=== PATIENT | male | born 1965 | race Caucasian/White ===

== ENCOUNTER 2017-07-06 19:34 | Emergency (ER) | payer BC ==
[2017-07-06] MEDS ORDERED: Clindamycin HCl 150 MG Cap PO ONE (20:10)
[2017-07-06] MEDS ORDERED: Take Home: Acetaminophen/HYDROcodone 325-10 MG, 5 Tab Pack PO ONE (20:11)
[2017-07-06] MEDS ORDERED: Take Home: Clindamycin HCl 150 MG Cap, 6 Cap Pack PO ONE (20:13)
--- NOTE | 2017-07-06 20:17 | EDM.PDOC ---
ED HPI GENERAL MEDICAL PROBLEM - General Chief Complaint: ENT Problem Stated Complaint: dental pain Time Seen by Provider: 07/06/17 19:45 Source of Information: Reports: Patient History Limitations: Reports: No Limitations - History of Present Illness INITIAL COMMENTS - FREE TEXT/NARRATIVE: Patient presents with pain to his left rear molar. He has had a crown and root canal prior and he began having pain to the tooth on . He has tried ibuprofen and tylenol with good results initially. He now however has uncontrolled pain. He has no complaints other than this. No medications or allergies. He was driven here by his . Onset Date: 07/04/17 Duration: Getting Worse Quality: Reports: Ache, Pressure right lower molar Pain Score (Numeric/FACES): 10 - Related Data Allergies Allergy/AdvReac Type Severity Reaction Status Date / Time No Known Allergies Allergy Verified 07/06/17 20:00 Home Meds: Home Meds . [No Known Home Meds] 07/06/17 [History] ED ROS GENERAL - Review of Systems Review Of Systems: See Below Constitutional: Reports: No Symptoms HEENT: Reports: Dental Pain Respiratory: Reports: No Symptoms Cardiovascular: Reports: No Symptoms Endocrine: Reports: No Symptoms GI/Abdominal: Reports: No Symptoms : Reports: No Symptoms Musculoskeletal: Reports: No Symptoms Skin: Reports: No Symptoms Neurological: Reports: No Symptoms Psychiatric: Reports: No Symptoms Hematologic/Lymphatic: Reports: No Symptoms Immunologic: Reports: No Symptoms ED EXAM, GENERAL - Physical Exam Exam: See Below General Appearance: Alert, WD/WN, Mild Distress Eye Exam: Bilateral Eye: EOMI, PERRL Throat/Mouth: Inflammation, Other (lower left jaw is swollen, with rear bottom molar broken and with caries). No: Normal Teeth Head: Atraumatic, Normocephalic Neck: Normal Inspection, Supple, Non-Tender, Full Range of Motion Neurological: Alert, Oriented, CN II-XII Intact, Normal Cognition, Normal Gait, Normal Reflexes, No Motor/Sensory Deficits Lymphatic: No Adenopathy ED GENERAL MEDICAL PROCEDURES - Additional/Other Procedure(s) Other (Free Text) Procedure(s): dental block to lower right mandible. 2 mL 1% lidocaine drawn and injected into medial and lateral sides of lower right jaw Patient tolerated the procedure, however the numbing effect was minimally effective, lasting only 5-10 minutes Patient subsequently medicated with pain medication Course - Vital Signs Last Recorded V/S: Last Vital Signs Temp 37.0 C 07/06/17 19:51 Pulse 68 07/06/17 19:51 Resp 20 07/06/17 19:51 BP 128/78 07/06/17 19:51 Pulse Ox 99 07/06/17 19:51 - Orders/Labs/Meds Meds: Medications Discontinued Medications Generic Name Dose Route Start Last Admin Trade Name Davis PRN Reason Stop Dose Admin Hydrocodone Bitart/Acetaminophen 1 packet 07/06/17 20:11 07/06/17 20:19 Take Home: Acetaminophen/Hydrocodone 325-10mg PO 07/06/17 20:12 1 packet ONETIME ONE Administration Clindamycin HCl 450 mg 07/06/17 20:10 07/06/17 20:19 Cleocin PO 07/06/17 20:11 450 mg ONETIME ONE Administration Clindamycin HCl 1 packet 07/06/17 20:13 07/06/17 20:24 Take Home: Clindamycin Hcl 150 Mg, 6 Cap Pack PO 07/06/17 20:14 1 packet ONETIME ONE Administration Lidocaine HCl 5 ml 07/06/17 19:48 07/06/17 20:00 Xylocaine-Mpf 1% INJECT 07/06/17 19:49 2 ml ONETIME ONE Administration Morphine Sulfate 4 mg 07/06/17 20:20 07/06/17 20:24 Morphine IM 07/06/17 20:21 4 mg ONETIME ONE Administration Ondansetron HCl 4 mg 07/06/17 20:20 07/06/17 20:24 Zofran Odt PO 07/06/17 20:21 4 mg ONETIME ONE Administration Departure - Departure Time of Disposition: 20:23 Disposition: Home, Self-Care 01 Condition: Good Clinical Impression: Dental abscess - Discharge Information Instructions: Dental Abscess, [place] Referrals: Robert Mendez PA-C [Primary Care Provider] - Forms: ED Department Discharge Additional Instructions: Make sure to keep your dental appointment on Saturday. You are taking Clindamycin 300 mg three times a day. If you develop diarrhea, a rash, have a hard time breathing, or other side effects, please call the hospital to let us know. Make sure to eat plenty of yogurt and take some probiotics over the next month to prevent a bacterial infection of the bowel Please call with any questions or concerns - Problem List & Annotations (1) Dental abscess SNOMED Code(s): 674840646 Code(s): K04.7 - PERIAPICAL ABSCESS WITHOUT SINUS Status: Acute Priority : Low - Problem List Review Problem List Initiated/Reviewed/Updated: Yes - Assessment/Plan Assessment:: dental abscess Plan: Make sure to keep your dental appointment on Saturday. You are taking Clindamycin 300 mg three times a day. If you develop diarrhea, a rash, have a hard time breathing, or other side effects, please call the hospital to let us know. Make sure to eat plenty of yogurt and take some probiotics over the next month to prevent a bacterial infection of the bowel Please call with any questions or concerns
[2017-07-06] MEDS ORDERED: Morphine 4 MG/ML Syringe IM ONE (20:20)
[2017-07-06] MEDS ORDERED: Ondansetron 4 MG Tab.DIS PO ONE (20:20)
== END 2017-07-06 20:33 | disposition home or self-care (01) ==
LOC: VM.ED 19:34
DX: K04.7 Periapical abscess without sinus (principal); K02.9 Dental caries, unspecified
CPT/HCPCS: 64400; 96372; 99282; A9270-GY; J2270

== ENCOUNTER 2021-08-24 08:04 | Day surgery (SDC) | payer BC ==
[~2021-08-24 08:04] MED LIST: Lactated Ringers 1,000 ML IV SCH
[2021-08-24] MEDS ORDERED: fentaNYL 100 MCG/2 ML SDV ONE (10:49)
[2021-08-24] MEDS ORDERED: Midazolam 1 MG/ML 2 ML SDV ONE (10:49)
[2021-08-24] MEDS ORDERED: Propofol 200 MG/20 ML SDV ONE (10:49)
== END 2021-08-24 14:43 | disposition home or self-care (01) ==
LOC: VM.SDS 08:04
PROVIDERS: ATTEND Family Medicine
DX: Z12.11 Encounter for screening for malignant neoplasm of colon (principal); D12.0 Benign neoplasm of cecum; K57.30 Diverticulosis of large intestine without perforation or abscess without bleeding; G43.909 Migraine, unspecified, not intractable, without status migrainosus; E78.00 Pure hypercholesterolemia, unspecified; Z79.899 Other long term (current) drug therapy; Z98.890 Other specified postprocedural states
CPT/HCPCS: 00812; J2250; J2704; J3010; J7120

== ENCOUNTER 2023-10-21 14:26 | Emergency (ER) | payer BC ==
[2023-10-21] MEDS: Diphtheria,Pertussis(Acell),Tetanus Vaccine 0.5 ML Syringe IM ONE (15:00)
== END 2023-10-21 15:15 | disposition home or self-care (01) ==
LOC: VM.ED 14:26
DX: S81.811A Laceration without foreign body, right lower leg, initial encounter (principal); E78.00 Pure hypercholesterolemia, unspecified; Z79.82 Long term (current) use of aspirin; Z79.899 Other long term (current) drug therapy; Z23 Encounter for immunization; W17.4XXA Fall from dock, initial encounter
CPT/HCPCS: 90471; 90715; 99282-25; 99283